=== PATIENT | female | born 1995 | race African-American/Black ===

== ENCOUNTER 2022-03-04 23:38 | Emergency (ER) | payer MEDICAID ==
[~2022-03-04] VITALS: Ht 154.9 cm; Wt 61.0 kg
[2022-03-05 00:25] VITALS: BP 124/86
== END 2022-03-05 06:00 | disposition left against medical advice (07) ==
LOC: ER 23:40
DX: R10.2 Pelvic and perineal pain (principal); Z53.21 Procedure and treatment not carried out due to patient leaving prior to being seen by health care provider

== ENCOUNTER 2022-09-26 01:03 | Emergency (ER) | payer MEDICAID ==
[~2022-09-26] VITALS: Ht 157.5 cm; Wt 57.8 kg
[2022-09-26 01:15] VITALS: BP 117/77
[2022-09-26 01:57] LABS: Urine Bacteria NONE SEEN /hpf (None Seen); Urine Blood Negative /uL (Negative); Urine Mucus FEW (None Seen); Urine Specific Gravity 1.034 (1.001-1.035); Urine WBC 7 /hpf (0 - 5)
== END 2022-09-26 04:18 | disposition left against medical advice (07) ==
LOC: ER 01:03
DX: O26.891 Other specified pregnancy related conditions, first trimester (principal); K08.89 Other specified disorders of teeth and supporting structures; Z3A.14 14 weeks gestation of pregnancy; Z53.21 Procedure and treatment not carried out due to patient leaving prior to being seen by health care provider
CPT/HCPCS: 81001

== ENCOUNTER 2024-01-09 12:43 | Emergency (ER) | payer MEDICAID ==
[~2024-01-09] VITALS: Ht 157.5 cm; Wt 56.0 kg
[2024-01-09 13:38] LABS: Urine Bacteria None Seen /hpf (None Seen)
[2024-01-09 13:48] LABS: Urine Blood 2+ /uL (Negative); Urine Clarity Clear (Clear); Urine Color Light-Yellow (Yellow); Urine Mucus FEW (None Seen); Urine Protein, UAD Negative (Negative); Urine Specific Gravity 1.018 (1.001-1.035); Urine Urobilinogen Normal (Negative); Urine WBC 1 /hpf (0 - 5)
[2024-01-09 13:50] LABS: Basophils # (auto) 0.1 10 ^3/uL (0-0.2); Basophils % (auto) 1.2 % (0.0-2.0); Hemoglobin 12.9 g/dL (12.2-16.2); Lymphocytes # (auto) 1.8 10 ^3/uL (0.4-5.4); Monocytes # (auto) 0.4 10 ^3/uL (0-1.3); Monocytes % (auto) 7.9 % (0.0-12.0); White Blood Cell 5.4 10^3/uL (4.4-10.8)
[2024-01-09 13:53] LABS: Eosinophils # (auto) 0 10 ^3/uL (0-0.8); Eosinophils % (auto) 0.8 % (0.0-7.0); Hematocrit 40.1 % (36.0-46.0); Lymphocytes % (auto) 33.6 % (10.0-50.0); Mean Corpuscular Hgb Conc. 32.1 g/dL (32.0-36.0); Mean Corpuscular Volume 74.8 fL (80.0-100.0); Neutrophils % (auto) 56.5 % (37.0-80.0); Nucleated Red Blood Cells % 0.1 %; Platelet Count (auto) 335 10^3/uL (140-450); Red Blood Cells 5.36 10^6/uL (4.0-5.20); Red Cell Distribution Width 15.2 % (11.8-14.3)
[2024-01-09 13:59] LABS: Chloride 106 mmol/L (98-107); Potassium 4.3 mmol/L (3.5-5.1); Sodium 139 mmol/L (136-145)
[2024-01-09 14:00] LABS: Anion Gap 6 (5-15); Calcium 9.7 mg/dL (8.7-10.4); Carbon Dioxide 27 mmol/L (20-30)
[2024-01-09 14:05] LABS: BUN/Creatinine Ratio 11.7 (10.0-20.0); Blood Urea Nitrogen 11 mg/dL (9-23); Glucose 89 mg/dL (74-106)
[2024-01-09] MEDS ORDERED: MECL25CH85 PO (14:40)
[2024-01-09 14:52] VITALS: BP 108/73; PULSE 83; RESP 16; TEMP 98.8; O2SAT 98
== END 2024-01-09 15:00 | disposition home or self-care (01) ==
LOC: ER 12:43
DX: R42 Dizziness and giddiness (principal); J45.909 Unspecified asthma, uncomplicated; F15.90 Other stimulant use, unspecified, uncomplicated; Z91.041 Radiographic dye allergy status; Z79.899 Other long term (current) drug therapy; Z86.2 Personal history of diseases of the blood and blood-forming organs and certain disorders involving the immune mechanism
CPT/HCPCS: 36415; 80048; 81001; 81025; 82962; 84484; 85025; 85379; 93005

== ENCOUNTER 2024-12-07 20:58 | Emergency (ER) | payer MEDICAID ==
[~2024-12-07] VITALS: Ht 157.5 cm; Wt 56.6 kg
[~2024-12-07 20:58] MED LIST: MECL25CH85 PO
--- NOTE | 2024-12-07 21:35 | ED.PDOC ---
HPI Comments 29 year old female with a Hx of HTN, Asthma, and Vertigo presents to the ED for the c/c o Substernal Chest pain that Radiates to the Left side of her Chest, w/ associated SOB, Back pain, POTTER and mild N/. Pt states that her symptoms have been onset for the past 1x week with no alleviating factors, but a worsening factor of deep inspiration. Pt does note on taking Control pills at this time. No other associated symptoms, modifiers, recent injuries or sick contacts pre sent at this time. Time Seen by MD: 21:30 Primary Care Provider: STACY Reviewed Notes: Nurses Notes, Medications, Allergies Allergies: Coded Allergies: Iodine (Verified Allergy, Unknown, 09/26/22) Home Meds Active Scripts Meclizine HCl (Antivert) 25 Mg Chw, 25 MG PO Q8HP PRN for 4 Days, #10 TAB.CHEW Prov:CHEPE PARIS MD 01/09/24 Information Source: Patient, Friend Mode of Arrival: Ambulatory Severity: Mild Timing: Weeks Duration: Intermittent Prehospital treatment: None Location: Chest (L), Substernal Radiation: No Radiation Quality: Pressure, Burning Onset: At Rest Cardiac Risk Factors: None PE Risk Factors: None History of: None Modifying Factors: Exertion Associated Signs and Symptoms: None Past Medical History PAST MEDICAL HISTORY: Anemia, Asthma, HTN Past Medical History (Other): vertigo Surgical History: Denies all surgeries DIRECTOR PACKAGING History: No Pertinent DIRECTOR PACKAGING History Family History Family History: Family hx of DM, Family hx of Cancer, Family hx of HTN Social History Smoker: Non-Smoker Alcohol: Denies ETOH Use Drugs: Marijuana Lives In: Home All Other Systems: Reviewed and Negative (comprehensive exam was negavtive accept what is in the HPI) Physical Exam General Appearance: Mild Distress HEENT: Other (Pupils and face symmetric. Moist mucous membranes.) Neck: Full Range of Motion, Non-Tender, Normal Inspection, Supple Respiratory: Chest Non-Tender, Lungs Clear, No Accessory Muscle Use, No Respiratory Distress, Normal Breath Sounds Cardiovascular: No Edema, No JVD, Regular Rate/Rhythm Breast Exam: Deferred Gastrointestinal: Non Tender, Soft Genitalia: Deferred Pelvic: Deferred Rectal: Deferred Extremities: Normal inspection, Normal range of motion, Non-tender, No pedal edema Neurologic: Alert (Oriented x4), Other (Anxious. Ambulatory.) Cerebellar Function: NOT DONE Reflexes: NOT DONE Skin: Dry, Normal Color, Warm Lymphatic: NOT DONE EKG EKG : Comments Sinus tach, rate 107, normal intervals, normal axis, possible old anteroseptal infarct, nonspecific T change. Was a procedure done? Was a procedure done?: No CP Differential Dx Differential Diagnosis: Angina, Anxiety / Panic Attack, Electrolyte Disorder, Pulmonary Embolus Differential Diagnosis: Induced Differential Diagnosis: Angina, Chest Wall Pain, Esophageal reflux/spasm, Gastritis, Myocardial Infarction, Pericarditis, Pulmonary Embolus X-Ray, Labs, Meds, VS Vital Signs Date Time Temp Pulse Resp B/P (MAP) Pulse Ox O2 Delivery O2 Flow Rate FiO2 12/07/24 22:33 99.1 83 17 128/90 (103) 98 99.1 12/07/24 22:33 83 17 98 Room Air 12/07/24 21:44 107 12/07/24 21:20 99.7 99 18 119/95 (103) 100 99.7 Lab Test 12/07/24 22:29 12/07/24 21:30 12/07/24 21:25 12/07/24 21:22 Range/Units Troponin I High Sensitivity < 3 L < 3 L </=34 ng/L White Blood Count 6.6 4.4-10.8 10^3/uL Red Blood Count 5.04 4.0-5.20 10^6/uL Hemoglobin 13.4 12.2-16.2 g/dL Hematocrit 41.1 36.0-46.0 % Mean Corpuscular Volume 81.5 80.0-100.0 fL Mean Corpuscular Hemoglobin 26.6 L 28.0-32.0 pg Mean Corpuscular Hemoglobin Concent 32.6 32.0-36.0 g/dL Red Cell Distribution Width 14.3 11.8-14.3 % Platelet Count 318 140-450 10^3/uL Mean Platelet Volume 8.8 6.9-10.8 fL Neutrophils (%) (Auto) 53.5 37.0-80.0 % Lymphocytes (%) (Auto) 37.2 10.0-50.0 % Monocytes (%) (Auto) 7.2 0.0-12.0 % Eosinophils (%) (Auto) 1.5 0.0-7.0 % Basophils (%) (Auto) 0.6 0.0-2.0 % Neutrophils # (Auto) 3.5 1.6-8.6 10 ^3/uL Lymphocytes # (Auto) 2.4 0.4-5.4 10 ^3/uL Monocytes # (Auto) 0.5 0-1.3 10 ^3/uL Eosinophils # (Auto) 0.1 0-0.8 10 ^3/uL Basophils # (Auto) 0 0-0.2 10 ^3/uL Nucleated Red Blood Cells 0.1 % D-Dimer, Quantitative 0.19 0.0-0.49 mg/L FEU Sodium Level 140 136-145 mmol/L Potassium Level 3.9 3.5-5.1 mmol/L Chloride Level 105 98-107 mmol/L Carbon Dioxide Level 27 20-31 mmol/L Anion Gap 8 5-15 Blood Urea Nitrogen 13 9-23 mg/dL Creatinine 1.00 0.550-1.02 mg/dL Glomerular Filtration Rate Calc 78 >90 mL/min BUN/Creatinine Ratio 13.0 10.0-20.0 Serum Glucose 99 74-106 mg/dL Calcium Level 9.6 8.7-10.4 mg/dL B-Type Natriuretic Peptide 6.29 0-100 pg/mL Urine Test Negative Negative Urine Opiates Screen Neg NEGATIVE Urine Fentanyl Screen Neg NEGATIVE Urine Barbiturates Screen Neg NEGATIVE Urine Phencyclidine Screen Neg NEGATIVE Urine Amphetamines Screen Neg NEGATIVE Urine Benzodiazepines Screen Neg NEGATIVE Urine Cocaine Screen Neg NEGATIVE Urine Cannabinoids Screen Neg NEGATIVE Urine Color Light-brown Yellow Urine Clarity Turbid H Clear Urine pH 7.0 5.0-9.0 Urine Specific Marcus 1.021 1.001-1.035 Urine Protein 1+ H Negative Urine Ketones Negative Negative Urine Blood 3+ H Negative /uL Urine Nitrite Negative Negative Urine Bilirubin Negative Negative Urine Urobilinogen 2 H Negative mg/dL Urine Leukocyte Esterase Trace Negative /uL Urine RBC 2946 0 - 4 /hpf Urine Microscopic WBC 21 H 0-5 /HPF Urine Squamous Epithelial Cells Mod <5 /hpf Urine Bacteria None seen None Seen /hpf Urine Glucose Normal Normal mg/dL Current Medications Medications (Trade) Dose Ordered Sig/Vladimir Route Start Time Stop Time Status Last Admin Sodium Chloride 2,000 ml @ 1,000 mls/hr Q2H ONCE IV 12/07/24 21:30 12/07/24 23:29 DC 12/07/24 22:35 Ketorolac Tromethamine (Toradol Injection) 30 mg ONCE ONCE IV 12/07/24 21:30 12/07/24 21:31 DC 12/07/24 22:44 Ondansetron HCl (Zofran) 4 mg ONCE ONCE IV 12/07/24 21:30 12/07/24 21:31 DC 12/07/24 22:43 Lorazepam (Ativan Inj) 0.5 mg ONCE ONCE IV 12/07/24 21:30 12/07/24 21:31 DC 12/07/24 22:44 Ceftriaxone Sodium 50 ml @ 100 mls/hr ONCE ONCE IV 12/07/24 22:45 12/07/24 23:14 DC 12/07/24 22:43 PROCEDURE(s): CXRP - CHEST PORTABLE REASON: cp sob ORDER NUMBER(s): [id number], ACCESSION NUMBER(s): [id number] CHEST RADIOGRAPH Indication: cp sob Technique: Single frontal view of the chest was obtained COMPARISON: None FINDINGS: Lines and Tubes: None Lungs: Clear Pleura: No effusion. No pneumothorax. Cardiomediastinal contours: Unremarkable Bones: Unremarkable IMPRESSION: 1. No acute disease. PROCEDURE(s): ABPL - CT AB PEL WO CON-NO ORAL OR IV REASON: back pain hematuria ORDER NUMBER(s): [id number], ACCESSION NUMBER(s): [id number] Exam: CT CT AB PEL WO CON-NO ORAL OR IV History: back pain hematuria Comparison Study: None Technique: Multidetector spiral CT of the abdomen was performed from lung bases to pubic symphysis. Imaging was performed without IV contrast. Axial, coronal and sagittal multiplanar reformats were obtained from the axial data set by the technologist. Radiation Dose : 1. Abdomen/Pelvis: CTDIvol 6.16 mGy, DLP 353.89 mGy*cm. Findings: Evaluation of solid organs is limited due to lack of intravenous contrast use. Lung Bases: No acute or significant lung base finding. Normal heart size. No pleural or pericardial effusion. Liver: The liver is normal in size. No focal lesions. Gallbladder and Biliary Tree: Unremarkable Spleen: Unremarkable Pancreas: The pancreas is grossly normal in appearance. Adrenal Glands: Unremarkable Kidneys: Kidneys are grossly normal without calculi or hydronephrosis. Bladder: Grossly unremarkable for degree of distention. Bowel: The stomach is grossly normal in appearance. Small bowel and colon are normal in caliber and distribution. The appendix is normal. Ascites: Absent Lymphadenopathy: No mesenteric, retroperitoneal or periportal lymphadenopathy. Abdominal Wall and Mesentery: Unremarkable. Vasculature: The visualized abdominal aorta is normal in size and caliber. Evaluation of abdominal and pelvic vessels is limited due to lack of intravenous contrast. Pelvic Organs: Moderately enlarged uterus. Left adnexal calcifications. Likely physiologic endometrial fluid. Musculoskeletal: No aggressive focal bony lesions, acute fractures or dislocation. IMPRESSION: 1. No acute abdominal or pelvic findings. 2. Moderately enlarged uterus and left adnexal calcifications. Radiation optimization: All CT scans at this facility use at least one of these dose optimization techniques: automated exposure control mA and/or kV adjustment per patient size (includes targeted exams where dose is matched to clinical indication) or iterative reconstruction. X-Ray, Labs, Meds, VS Comment 29-year-old female with a history of hypertension, asthma and vertigo complaining of chest pain, hot flashes, shortness of breath, back pain, nausea and vomiting Vitals remarkable for temperature 99.7, heart rate 107, BP 119/95 Exam unremarkable Rhythm strip independently interpreted by me: Sinus tach, rate 107, no ectopy. Chest x-ray no acute disease CT abdomen and pelvis IMPRESSION: 1. No acute abdominal or pelvic findings. 2. Moderately enlarged uterus and left adnexal calcifications. CBC, metabolic panel, BNP, 2 serial troponins and D-dimer unremarkable. UA abnormal showing protein, blood, leukocyte esterase, WBCs and RBCs consistent with UTI Patient treated with the following in the ED: 2 L 0.9 normal saline IV bolus, Toradol 30 mg IV, Zofran 4 mg IV, Ativan 0.5 mg IV, Rocephin 1 g IV On re-evaluation, patient states symptoms have improved. Vitals were stable. Tachycardia has resolved. Hospitalization was considered, however patient had rapid improvement of symptoms with treatment in the ED, and I no longer feel hospitalization is necessary. Cardiac workup is unremarkable, and I am comfortable discharging the patient home with symptomatic treatment and close follow-up with her primary doctor. Rx Keflex, ibuprofen, Zofran Time of 1ST Reevaluation: :00 Reevaluation 1ST: Unchanged Patient Education/Counseling: Diagnosis, Treatment, Need For Follow Up Family Education/Counseling: Diagnosis, Treatment, Need For Follow Up SEPSIS Sepsis Screen SEPSIS EXCLUSION NOTE: Sepsis Exclusion Note: Patient presents with SIRS criteria, but the SIRS response is attributed to [anxiety, pain ]. Sepsis bundle is not initiated at this time, due to this reaso n. Further management will focus on the treatment of the above condition (s). Physician Orders Chest Portable (12/07/24 21:22) Electrocardigram (12/07/24 21:22) Troponin-I Hs (12/08/24 00:22) Ct Ab Pel Wo Con-No Oral Or Iv (12/07/24 22:17) Saline Lock (12/07/24 22:21) Vital Signs Date Time Temp Pulse Resp B/P (MAP) Pulse Ox O2 Delivery O2 Flow Rate FiO2 12/07/24 22:33 99.1 83 17 128/90 (103) 98 99.1 12/07/24 22:33 83 17 98 Room Air 12/07/24 21:44 107 12/07/24 21:20 99.7 99 18 119/95 (103) 100 99.7 Laboratory Tests Test 12/07/24 21:30 White Blood Count 6.6 10^3/uL (4.4-10.8) Medications Medications Dose Ordered Sig/Vladimir Route Start Time Stop Time Status Last Admin Dose Admin Ceftriaxone Sodium 50 ml @ 100 mls/hr ONCE ONCE IV 12/07/24 22:45 12/07/24 23:14 DC 12/07/24 22:43 Ketorolac Tromethamine 30 mg ONCE ONCE IV 12/07/24 21:30 12/07/24 21:31 DC 12/07/24 22:44 Lorazepam 0.5 mg ONCE ONCE IV 12/07/24 21:30 12/07/24 21:31 DC 12/07/24 22:44 Ondansetron HCl 4 mg ONCE ONCE IV 12/07/24 21:30 12/07/24 21:31 DC 12/07/24 22:43 Sodium Chloride 2,000 ml @ 1,000 mls/hr Q2H ONCE IV 12/07/24 21:30 12/07/24 23:29 DC 12/07/24 22:35 Departure 1 Departure Time of Disposition: 00:15 Impression: Primary Impression: Chest pain with low risk for cardiac etiology Additional Impression: UTI (urinary tract infection) Qualified Codes: N39.0 - Urinary tract infection, site not specified Disposition: HOME / SELF CARE / HOMELESS Condition: Stable Additional Instructions: Your blood tests, including screening test for heart attack and heart failure and blood clots in your lungs, were unremarkable. Your test was negative. Your chest x-ray was normal. Your CT scan did not show any acute findings. Your urine test was abnormal, consistent with a urinary tract infecti on. This is possibly the cause of your symptoms. I have prescribed antibiotics and medication for your symptoms. Follow-up with your primary doctor in 1-2 days. Return to ER for persistent or worsening symptoms. e-Prescriptions Ibuprofen Micronized (Ibuprofen) 800 Mg Tab 800 MG PO Q8HP PRN, #30 TAB Prn pain. Take with food. Prov: LEX COY MD 12/08/24 Ondansetron Odt 4MG Tab (ZOFRAN PO) 4 Mg Tb 4 MG PO TID PRN, #20 TAB Prn nausea/vomiting ODT TAB-DISSOLVE IN MOUTH, THEN SWALLOW Prov: LEX COY MD 12/08/24 Cephalexin Monohydrate (Cephalexin) 500 Mg Cap 1 CAP PO QID for 10 Days, #40 CAP Prov: LEX COY MD 12/08/24 Discharged With: Spouse Critical Care Note Critical Care Time?: No Stability Stability form required: No Heart Score Heart Score: Heart Score Response (Comments) Value History Slightly Suspicious 0 EKG Repolarization Disturb 1 Age <45 0 Risk Factors 1 or 2 risk factors 1 Troponin Normal limit 0 Total 2 I personally scribed for LEX COY MD ([email or web address]) on 12/07/24 at 21:35. Electronically submitted by Ernie Espinal ([email or web address]). LEX COY MD Dec 07, 2024 21:35
[2024-12-07 21:46] LABS: Urine Protein, UAD 1+ (Negative)
[2024-12-07 21:47] LABS: Hematocrit 41.1 % (36.0-46.0); Hemoglobin 13.4 g/dL (12.2-16.2); Mean Corpuscular Hemoglobin 26.6 pg (28.0-32.0); Mean Corpuscular Volume 81.5 fL (80.0-100.0); Nucleated Red Blood Cells % 0.1 %
[2024-12-07 21:54] LABS: Chloride 105 mmol/L (98-107); Potassium 3.9 mmol/L (3.5-5.1); Sodium 140 mmol/L (136-145)
[2024-12-07 21:55] LABS: Anion Gap 8 (5-15); Calcium 9.6 mg/dL (8.7-10.4); Carbon Dioxide 27 mmol/L (20-31)
[2024-12-07 22:00] LABS: BUN/Creatinine Ratio 13.0 (10.0-20.0); Blood Urea Nitrogen 13 mg/dL (9-23); Glucose 99 mg/dL (74-106)
[2024-12-07 22:00] LABS: Cannabinoid Screen, Urine Neg (NEGATIVE)
[2024-12-07 22:01] LABS: Amphetamine Screen, Urine Neg (NEGATIVE); Barbiturate Scree,Urine Neg (NEGATIVE); Benzodiazephine Screen, Urine Neg (NEGATIVE); Cocaine Screen, Urine Neg (NEGATIVE); Opiate Scree,Urine Neg (NEGATIVE); Phencyclidine Screen, Urine Neg (NEGATIVE)
[2024-12-07 22:33] VITALS: BP 128/90; PULSE 83; RESP 17; TEMP 99.1; O2SAT 98
[2024-12-07] MEDS: SODIUM CHLORIDE 0.9% 2,000 ML IV ONE (22:35)
--- NOTE | 2024-12-07 22:38 | DVH ---
CHEST RADIOGRAPH Indication: cp sob Technique: Single frontal view of the chest was obtained COMPARISON: None FINDINGS: Lines and Tubes: None Lungs: Clear Pleura: No effusion. No pneumothorax. Cardiomediastinal contours: Unremarkable Bones: Unremarkable IMPRESSION: 1. No acute disease.
[2024-12-07] MEDS: cefTRIAXone 1GM/50ML D5W 50 ML IV ONE (22:43)
[2024-12-07] MEDS: ONDANSETRON HCL 4 MG/2 ML VIAL IV ONE (22:43)
[2024-12-07] MEDS: KETOROLAC TROMETH 30 MG/ML 1ML VIAL IV ONE (22:44)
[2024-12-07] MEDS: LORazepam 2MG/ML-1ML VIAL IV ONE (22:44)
--- NOTE | 2024-12-07 23:45 | DVH ---
Exam: CT CT AB PEL WO CON-NO ORAL OR IV History: back pain hematuria Comparison Study: None Technique: Multidetector spiral CT of the abdomen was performed from lung bases to pubic symphysis. I maging was performed without IV contrast. Axial, coronal and sagittal multiplanar reformats were obta ined from the axial data set by the technologist. Radiation Dose : 1. Abdomen/Pelvis: CTDIvol 6.16 mGy, DLP 353.89 mGy*cm. Findings: Evaluation of solid organs is limited due to lack of intravenous contrast use. Lung Bases: No acute or significant lung base finding. Normal heart size. No pleural or pericardial effusion. Liver: The liver is normal in size. No focal lesions. Gallbladder and Biliary Tree: Unremarkable Spleen: Unremarkable Pancreas: The pancreas is grossly normal in appearance. Adrenal Glands: Unremarkable Kidneys: Kidneys are grossly normal without calculi or hydronephrosis. Bladder: Grossly unremarkable for degree of distention. Bowel: The stomach is grossly normal in appearance. Small bowel and colon are normal in caliber and d istribution. The appendix is normal. Ascites: Absent Lymphadenopathy: No mesenteric, retroperitoneal or periportal lymphadenopathy. Abdominal Wall and Mesentery: Unremarkable. Vasculature: The visualized abdominal aorta is normal in size and caliber. Evaluation of abdominal a nd pelvic vessels is limited due to lack of intravenous contrast. Pelvic Organs: Moderately enlarged uterus. Left adnexal calcifications. Likely physiologic endometri al fluid. Musculoskeletal: No aggressive focal bony lesions, acute fractures or dislocation. IMPRESSION: 1. No acute abdominal or pelvic findings. 2. Moderately enlarged uterus and left adnexal calcifications. Radiation optimization: All CT scans at this facility use at least one of these dose optimization jonny hniques: automated exposure control mA and/or kV adjustment per patient size (includes targeted exam s where dose is matched to clinical indication) or iterative reconstruction.
[2024-12-08] MEDS ORDERED: CEPH500C PO (00:17)
[2024-12-08] MEDS ORDERED: IBUP-1455 PO (00:17)
[2024-12-08] MEDS ORDERED: ZOFR4T PO (00:17)
--- NOTE | 2024-12-12 08:39 | ECG ---
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
== END 2024-12-08 00:38 | disposition home or self-care (01) ==
LOC: ER 20:58
DX: N39.0 Urinary tract infection, site not specified (principal); R07.89 Other chest pain; I10 Essential (primary) hypertension; D64.9 Anemia, unspecified; F41.9 Anxiety disorder, unspecified; J45.909 Unspecified asthma, uncomplicated; Z88.8 Allergy status to other drugs, medicaments and biological substances
CPT/HCPCS: 36415; 71045; 74176; 80048; 80307; 81001; 81025; 83880; 84484; 85025; 85379; 93005; 96361; 96365; 96375; 99285; J0696; J1885; J2060; J2405

== ENCOUNTER 2024-12-10 23:33 | Emergency (ER) | payer MEDICAID ==
[~2024-12-10] VITALS: Ht 157.5 cm; Wt 59.1 kg
[~2024-12-10 23:33] MED LIST changes: +CEPH500C PO; +IBUP-1455 PO; +ZOFR4T PO
[2024-12-11 00:21] LABS: Hematocrit 37.2 % (36.0-46.0); Hemoglobin 12.7 g/dL (12.2-16.2); Mean Corpuscular Hemoglobin 27.5 pg (28.0-32.0); Mean Corpuscular Volume 80.7 fL (80.0-100.0); Nucleated Red Blood Cells % 0.0 %
[2024-12-11 00:30] LABS: Chloride 107 mmol/L (98-107); Sodium 141 mmol/L (136-145)
[2024-12-11 00:31] LABS: Anion Gap 8 (5-15); Calcium 8.8 mg/dL (8.7-10.4); Carbon Dioxide 26 mmol/L (20-31)
--- NOTE | 2024-12-11 00:32 | ED.PDOC ---
History of Present Illness HPI Comments 29 y/o F presents with c/c nonradiating, left sided chest pain. Onset reported to have occurred sudden and unprovoked, this evening. Pain is an 8/10 in severity and showed no improvement following hot shower use. History of chest pain with accompanying ED visit on December 07, 2024 reported. Patient states on findings during visit being benign and pain subsiding following being treated with Ativan then. Patient denies having any shortness of breath, palpitation, nausea, vomiting, or further associated symptoms. Significant history for anemia, asthma, HTN, vertigo, and marijuana use. Chief Complaint: Chest Pain Time Seen by MD: 23:30 Primary Care Provider: STACY Reviewed Notes: Nurses Notes, Medications, Allergies Allergies: Coded Allergies: Iodine (Verified Allergy, Unknown, 09/26/22) Home Meds Active Scripts Ibuprofen Micronized (Ibuprofen) 800 Mg Tab, 800 MG PO Q8HP PRN, #30 TAB Prn pain. Take with food. Prov:LEX COY MD 12/08/24 Ondansetron Odt 4MG Tab (ZOFRAN PO) 4 Mg Tb, 4 MG PO TID PRN, #20 TAB Prn nausea/vomiting ODT TAB-DISSOLVE IN MOUTH, THEN SWALLOW Prov:LEX COY MD 12/08/24 Cephalexin Monohydrate (Cephalexin) 500 Mg Cap, 1 CAP PO QID for 10 Days, #40 CAP Prov:LEX COY MD 12/08/24 Meclizine HCl (Antivert) 25 Mg Chw, 25 MG PO Q8HP PRN for 4 Days, #10 TAB.CHEW Prov:CHEPE PARIS MD 01/09/24 Information Source: Patient Mode of Arrival: Ambulatory Severity: Moderate Timing: Hours Duration: Since onset Prehospital treatment: None Past Medical History PAST MEDICAL HISTORY: Anemia, Asthma, HTN Past Medical History (Other): vertigo Surgical History: Denies all surgeries PROJECT SPECIALIST History: No Pertinent PROJECT SPECIALIST History Family History Family History: Family hx of DM, Family hx of Cancer, Family hx of HTN Social History Smoker: Non-Smoker Alcohol: Denies ETOH Use Drugs: Marijuana Lives In: Home All Other Systems: Reviewed and Negative (Comprehensive systems review obtained and negative except for what is stated in the HPI.) Physical Exam General Appearance: No Apparent Distress, Normal HEENT: Normal ENT Inspection, Pharynx Normal, TMs Normal Neck: Full Range of Motion, Non-Tender, Normal, Normal Inspection Respiratory: Lungs Clear, No Accessory Muscle Use, No Respiratory Distress, Normal Breath Sounds Cardiovascular: No Edema, No JVD, No Murmur, No Gallop, Normal Peripheral Pulses, Regular Rate/Rhythm, Other (chest pain reproducible with palpation ) Breast Exam: Deferred Gastrointestinal: No Organomegaly, Non Tender, No Pulsatile Mass, Normal Bowel Sounds, Soft Genitalia: Deferred Pelvic: Deferred Rectal: Deferred Extremities: No calf tenderness, Normal capillary refill, Normal inspection, Normal range of motion, Non-tender, No pedal edema Musculoskeletal : Location: Left Extremity Location: Chest Apperance: Normal, Tenderness (reproducible with palpation ) Neurologic: Alert, food and beverage assistant II-XII nml as Tested, No Motor Deficits, Normal Affect, Normal Mood, No Sensory Deficits Cerebellar Function: Normal Reflexes: Normal Skin: Dry, Normal Color, Warm Lymphatic: No Adenopathy Was a procedure done? Was a procedure done?: No EKG EKG : Pulse Rate (adult): 75 [place]: Normal Cardiac Rhythm: NSR Block: None Hypertrophy: None ST: Normal Differential Dx Considerations may include: Angina, Anxiety / Panic Attack, Electrolyte Disorder, Pulmonary Embolus, Chest Wall Pain, Esophageal reflux/spasm, Gastritis, Myocardial Infarction, Pericarditis X-Ray, Labs, Meds, VS Vital Signs Date Time Temp Pulse Resp B/P (MAP) Pulse Ox O2 Delivery O2 Flow Rate FiO2 12/11/24 00:32 75 12/10/24 23:44 75 12/10/24 23:40 98.7 80 16 139/93 (108) 100 98.7 Lab Test 12/11/24 00:45 12/10/24 23:53 Range/Units Troponin I High Sensitivity Pending < 3 L </=34 ng/L White Blood Count 6.6 4.4-10.8 10^3/uL Red Blood Count 4.61 4.0-5.20 10^6/uL Hemoglobin 12.7 12.2-16.2 g/dL Hematocrit 37.2 36.0-46.0 % Mean Corpuscular Volume 80.7 80.0-100.0 fL Mean Corpuscular Hemoglobin 27.5 L 28.0-32.0 pg Mean Corpuscular Hemoglobin Concent 34.1 32.0-36.0 g/dL Red Cell Distribution Width 14.0 11.8-14.3 % Platelet Count 272 140-450 10^3/uL Mean Platelet Volume 9.3 6.9-10.8 fL Neutrophils (%) (Auto) 47.3 37.0-80.0 % Lymphocytes (%) (Auto) 42.2 10.0-50.0 % Monocytes (%) (Auto) 7.4 0.0-12.0 % Eosinophils (%) (Auto) 2.0 0.0-7.0 % Basophils (%) (Auto) 1.1 0.0-2.0 % Neutrophils # (Auto) 3.1 1.6-8.6 10 ^3/uL Lymphocytes # (Auto) 2.8 0.4-5.4 10 ^3/uL Monocytes # (Auto) 0.5 0-1.3 10 ^3/uL Eosinophils # (Auto) 0.1 0-0.8 10 ^3/uL Basophils # (Auto) 0.1 0-0.2 10 ^3/uL Nucleated Red Blood Cells 0.0 % Sodium Level 141 136-145 mmol/L Potassium Level 3.3 L 3.5-5.1 mmol/L Chloride Level 107 98-107 mmol/L Carbon Dioxide Level 26 20-31 mmol/L Anion Gap 8 5-15 Blood Urea Nitrogen 9 9-23 mg/dL Creatinine 0.88 0.550-1.02 mg/dL Glomerular Filtration Rate Calc 91 >90 mL/min BUN/Creatinine Ratio 10.2 10.0-20.0 Serum Glucose 86 74-106 mg/dL Calcium Level 8.8 8.7-10.4 mg/dL X-Ray, Labs, Meds, VS Comment Imaging: X-rays and CT scans were reviewed and interpreted by this provider, imaging shows no fractures and no pathological disease. Pending radiology review. Laboratory: Labs reviewed and interpreted by this provider. No significant abnormalities noted. Patient has prior medical visits reviewed. Med reconciliation performed Vital signs reviewed Time of 1ST Reevaluation: 00:00 Reevaluation 1ST: Unchanged Patient Education/Counseling: Diagnosis, Treatment, Need For Follow Up (Follow up with PCP in the next 2-4 days. Return to the emergency department if symptoms worsen.) Family Education/Counseling: No Family Present Additional Information Previous visits reviewed: December 07, 2024 encounter for chest pain The following tests were ordered, and results were reviewed by me: CXR, troponin, CBC, BMP, UA, EKG Additional Information was gathered from interviewing the following independent historians: N/A I reviewed and agreed with the following test results read by other providers: CXR I discussed treatment and results with medical personnel and: patient SEPSIS Sepsis Screen Date sepsis recognized/suspect: Dec 10, 2024 Time Sepsis recognized/suspect: 2339 Recent Procedure: No On Antibiotic Therapy: No Respiratory Rate >20: No Heart Rate >90: No Temp<36 C (96.8 F) or >38.3 C: No SBP <90 or MAP <65 mmHG: No New Acute Mental Status Change: No Is the patient on CPAP, BIPAP,: No Physician Orders Troponin-I Hs (12/11/24 02:41) Electrocardigram (12/10/24 23:41) Electrocardigram (12/11/24 00:41) Electrocardigram (12/11/24 02:41) Troponin-I Hs (12/10/24 23:50) Urinalysis (12/10/24 23:50) Chest Xray 1 View (12/10/24 23:50) Vital Signs Date Time Temp Pulse Resp B/P (MAP) Pulse Ox O2 Delivery O2 Flow Rate FiO2 12/11/24 00:32 75 12/10/24 23:44 75 12/10/24 23:40 98.7 80 16 139/93 (108) 100 98.7 Laboratory Tests Test 12/10/24 23:53 White Blood Count 6.6 10^3/uL (4.4-10.8) Departure 1 Departure Time of Disposition: 01:04 Impression: Primary Impression: Chest pain Qualified Codes: R07.82 - Intercostal pain Additional Impressions: Anxiety Chest pain with low risk for cardiac etiology Disposition: 01 HOME / SELF CARE / HOMELESS Condition: Fair Discharged With: Self Critical Care Note Critical Care Time?: No Stability Stability form required: No Heart Score Heart Score: Heart Score Response (Comments) Value History Slightly Suspicious 0 EKG Normal 0 Age <45 0 Risk Factors 1 or 2 risk factors 1 Troponin Normal limit 0 Total 1 I personally scribed for CONCHA COFFMAN ([facility] on 12/11/24 at 00:32. Electronically submitted by Castro Garcia [email or web address]). CONCHA COFFMAN Dec 11, 2024 00:32
[2024-12-11 00:36] LABS: BUN/Creatinine Ratio 10.2 (10.0-20.0); Glucose 86 mg/dL (74-106)
[2024-12-11 00:37] LABS: Blood Urea Nitrogen 9 mg/dL (9-23); Potassium 3.3 mmol/L (3.5-5.1)
--- NOTE | 2024-12-11 00:50 | DVH ---
CHEST RADIOGRAPH Indication: cp Technique: Single frontal view of the chest was obtained COMPARISON: XY CHEST PORTABLE on DOS: 12/07/24 FINDINGS: Lines and Tubes: None Lungs: Clear Pleura: No effusion. No pneumothorax. Cardiomediastinal contours: Unremarkable Bones: Unremarkable IMPRESSION: 1. No acute disease.
[2024-12-11] MEDS ORDERED: ALPRAZolam 0.5 MG TAB PO ONE (01:15)
[2024-12-11 01:41] VITALS: BP 124/93; PULSE 66; RESP 18; TEMP 97.5; O2SAT 98
[2024-12-11] MEDS: LORazepam 2MG/ML-1ML VIAL IM ONE (01:46)
[2024-12-11 02:37] LABS: Urine Protein, UAD Negative (Negative)
--- NOTE | 2024-12-13 14:51 | ECG ---
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
== END 2024-12-11 01:57 | disposition home or self-care (01) ==
LOC: ER 23:33
DX: R07.89 Other chest pain (principal); F41.9 Anxiety disorder, unspecified; J45.909 Unspecified asthma, uncomplicated; I10 Essential (primary) hypertension; F12.90 Cannabis use, unspecified, uncomplicated; Z86.2 Personal history of diseases of the blood and blood-forming organs and certain disorders involving the immune mechanism; Z88.8 Allergy status to other drugs, medicaments and biological substances; Z79.899 Other long term (current) drug therapy
CPT/HCPCS: 36415; 71045; 80048; 81001; 84484; 85025; 93005; 96372; 99285; J2060